=== PATIENT | female | born 1950 | race Caucasian/White ===

== ENCOUNTER 2021-02-10 12:34 | Emergency (ER) | payer MEDICARE ==
[2021-02-10] MEDS ORDERED: Sodium Chloride 0.9% 10 ML Syringe FLUSH PRN (12:44)
--- NOTE | 2021-02-10 12:53 | EDM.PDOC ---
ED HPI GENERAL MEDICAL PROBLEM - General Chief Complaint: Neuro Symptoms/Deficits Stated Complaint: TROUBLE SPEAKING [id number] Time Seen by Provider: 02/10/21 12:35 Source of Information: Reports: Patient, Family (), RN, RN Notes Reviewed History Limitations: Reports: No Limitations - History of Present Illness INITIAL COMMENTS - FREE TEXT/NARRATIVE: Pt presents to ER by POV with c/o possible stroke. Pt states that at 12-noon she had sudden onset of work finding difficulty. Pt's states they were having a conversation when the pt suddenly began speaking "jibberish". He describes both nonsensical words and slurred speech. Symptoms lasted about 5 minutes, then completely resolved. The pt states she was fully aware of what she wanted to say, but could not get the right words to come out. She knew from her 's expression and reaction that something was very wrong. She denies headache, visual changes, difficulty swallowing, or facial droop. Denies unilat eral motor weakness, numbness or tingling. Pt denies any history of CVA, head injury, HTN, or known aneurysm. Pt's father had CVA. Onset: Today, Sudden Duration: Resolved Prior to Arrival Location: Reports: Other (Speech) Quality: Reports: Other (Denies pain) Severity: Severe Improves with: Reports: None Worsens with: Reports: None Associated Symptoms: Reports: No Other Symptoms - Related Data Allergies Allergy/AdvReac Type Severity Reaction Status Date / Time No Known Allergies Allergy Verified 02/10/21 12:58 Past Medical History - Past Health History Medical/Surgical History: Denies Medical/Surgical History Social & Family History - Family History Neurological: Reports: CVA (Father) - Living Situation & Occupation Living situation: Reports: , with Spouse Occupation: Retired ED ROS GENERAL - Review of Systems Review Of Systems: Comprehensive ROS is negative, except as noted in HPI. ED EXAM, NEURO - Physical Exam Exam: See Below Exam Limited By: No Limitations General Appearance: Alert, WD/WN, No Apparent Distress Eye Exam: Bilateral Eye: EOMI, Normal Inspection, PERRL Ears: Normal External Exam, Normal Canal, Hearing Grossly Normal, Normal TMs Nose: Normal Inspection, Normal Mucosa, No Blood Throat/Mouth: Normal Inspection, Normal Lips, Normal Teeth, Normal Gums, Normal Oropharynx, Normal Voice, No Airway Compromise Head Exam: Atraumatic, Normocephalic Neck: Normal Inspection, Supple, Non-Tender, Full Range of Motion. No: Carotid Bruit Respiratory/Chest: No Respiratory Distress, Lungs Clear, Normal Breath Sounds, No Accessory Muscle Use, Chest Non-Tender Cardiovascular: Normal Peripheral Pulses, Regular Rate, Rhythm, No Edema, No Gallop, No JVD, No Murmur, No Rub GI/Abdominal: Normal Bowel Sounds, Soft, Non-Tender, No Organomegaly, No Distention, No Abnormal Bruit, No Mass Neurological: Alert, Normal Mood/Affect, Normal Dorsiflexion, CN II-XII Intact, Normal Plantar Flexion, Normal Gait, Normal Reflexes, No Motor/Sensory Deficits, Oriented x 3, Other (NIH score: 0) Back Exam: Normal Inspection, Full Range of Motion, NT Extremities: Normal Inspection, Normal Range of Motion, Non-Tender, No Pedal Edema, Normal Capillary Refill Psychiatric: Normal Affect, Normal Mood Skin Exam: Warm, Dry, Intact, Normal Color, No Rash #1 Interpretation EKG Date: 02/10/21 Time: 13:03 Rhythm: NSR Rate (Beats/Min): 63 Hollins: Normal P-Wave: Present QRS: Other (Anterior Q waves) ST-T: Normal QT: Normal Comparison: NA - No Prior EKG Course - Vital Signs Last Recorded V/S: Last Vital Signs Temp 97.9 F 02/10/21 13:07 Pulse 65 02/10/21 13:07 Resp 18 02/10/21 13:07 BP 156/99 H 02/10/21 13:07 Pulse Ox 96 02/10/21 13:07 - Orders/Labs/Meds Orders: Active Orders 24 hr Category Date Time Status Blood Glucose Check, Bedside [RC] ONETIME Care 02/10/21 12:43 Active EKG 12 Lead [EKG Documentation Completion] [] STAT Care 02/10/21 12:44 Active NIH Stroke Scale [RC] ASDIRECTED Care 02/10/21 12:43 Active Peripheral IV Care [RC] . DIRECTED Care 02/10/21 12:45 Active DRUG SCREEN URINE BIORAD [URCHEM] Stat Lab 02/10/21 12:44 Ordered UA RFX MARYURI AND CULT IF INDIC [URIN] Stat Lab 02/10/21 12:44 Ordered Sodium Chloride 0.9% [Saline Flush] Med 02/10/21 12:44 Active 10 ml FLUSH ASDIRECTED PRN Peripheral IV Insertion Adult [OM.PC] Stat Oth 02/10/21 12:44 Ordered Medication Orders Sodium Chloride (Sodium Chloride 0.9% 10 Ml Syringe) 10 ml FLUSH ASDIRECTED PRN PRN Reason: Keep Vein Open Labs: Laboratory Tests 02/10/21 02/10/21 02/10/21 Range/Units 12:45 12:54 12:54 WBC 5.7 (5.0-10.0) 10^3/uL RBC 4.82 (4.2-5.4) 10^6/uL Hgb 15.1 (12.0-16.0) g/dL Hct 45.1 (37.0-47.0) % MCV 93.6 (80-100) fL MCH 31.3 (27.0-34.0) pg MCHC 33.5 (33.0-35.0) g/dL Plt Count 159 (150-450) 10^3/uL Neut % (Auto) 50.1 (42.2-75.2) % Lymph % (Auto) 38.6 (20.5-50.1) % Bennett % (Auto) 9.9 H (2-8) % Eos % (Auto) 1.2 (1.0-3.0) % Baso % (Auto) 0.2 (0.0-1.0) % PT 10.2 (9.0-12.0) SEC INR 1.0 (0.9-1.2) APTT 24.7 (22.0-34.0) SEC Sodium (136-145) mmol/L Potassium (3.5-5.1) mmol/L Chloride (98-107) mmol/L Carbon Dioxide (21-32) mmol/L Anion Gap (7-13) mEq/L BUN (7-18) mg/dL Creatinine (0.55-1.02) mg/dL Est Cr Clr Drug Dosing mL/min Estimated GFR (MDRD) BUN/Creatinine Ratio (No establ ref range) Glucose (70-99) mg/dL POC Glucose 107 H (70-99) mg/dL Lactic Acid (0.4-2.0) mmol/L Calcium (8.5-10.1) mg/dL Total Bilirubin (0.2-1.0) mg/dL AST (15-37) U/L ALT (14-59) U/L Alkaline Phosphatase (46-116) U/L C-Reactive Protein (0.0-0.9) mg/dL Total Protein (6.4-8.2) g/dL Albumin (3.4-5.0) g/dL Globulin Albumin/Globulin Ratio Lipase (73-393) U/L Ethyl Alcohol (0) mg/dL 02/10/21 02/10/21 Range/Units 12:54 12:54 WBC (5.0-10.0) 10^3/uL RBC (4.2-5.4) 10^6/uL Hgb (12.0-16.0) g/dL Hct (37.0-47.0) % MCV (80-100) fL MCH (27.0-34.0) pg MCHC (33.0-35.0) g/dL Plt Count (150-450) 10^3/uL Neut % (Auto) (42.2-75.2) % Lymph % (Auto) (20.5-50.1) % Bennett % (Auto) (2-8) % Eos % (Auto) (1.0-3.0) % Baso % (Auto) (0.0-1.0) % PT (9.0-12.0) SEC INR (0.9-1.2) APTT (22.0-34.0) SEC Sodium 138 (136-145) mmol/L Potassium 4.6 (3.5-5.1) mmol/L Chloride 103 (98-107) mmol/L Carbon Dioxide 28 (21-32) mmol/L Anion Gap 11.6 (7-13) mEq/L BUN 9 (7-18) mg/dL Creatinine 0.99 (0.55-1.02) mg/dL Est Cr Clr Drug Dosing 50.21 mL/min Estimated GFR (MDRD) 56 BUN/Creatinine Ratio 9.1 (No establ ref range) Glucose 107 H (70-99) mg/dL POC Glucose (70-99) mg/dL Lactic Acid 1.2 (0.4-2.0) mmol/L Calcium 8.9 (8.5-10.1) mg/dL Total Bilirubin 0.5 (0.2-1.0) mg/dL AST 13 L (15-37) U/L ALT 24 (14-59) U/L Alkaline Phosphatase 93 (46-116) U/L C-Reactive Protein < 0.2 (0.0-0.9) mg/dL Total Protein 7.1 (6.4-8.2) g/dL Albumin 3.4 (3.4-5.0) g/dL Globulin 3.7 Albumin/Globulin Ratio 0.9 Lipase 52 L (73-393) U/L Ethyl Alcohol < 3 (0) mg/dL Meds: Medications Generic Name Dose Route Start Last Admin Trade Name Freq PRN Reason Stop Dose Admin Sodium Chloride 10 ml 02/10/21 12:44 Sodium Chloride 0.9% 10 Ml Syringe FLUSH ASDIRECTED PRN Keep Vein Open Discontinued Medications Generic Name Dose Route Start Last Admin Trade Name Freq PRN Reason Stop Dose Admin Aspirin 324 mg 02/10/21 13:59 Aspirin 81 Mg Tab.Chew PO 02/10/21 14:00 ONETIME ONE - Radiology Interpretation Free Text/Narrative:: CT HEAD: no acute process, chronic microvascular changes, see Rad. report. Departure - Departure Time of Disposition: 14:00 Disposition: Home, Self-Care 01 Condition: Fair Clinical Impression: TIA (transient ischemic attack) - Discharge Information *PRESCRIPTION DRUG MONITORING PROGRAM REVIEWED*: Not Applicable *COPY OF PRESCRIPTION DRUG MONITORING REPORT IN PATIENT FINESSE: Not Applicable Instructions: Transient Ischemic Attack Forms: ED Department Discharge Additional Instructions: Call [phone] to schedule an appointment for tomorrow morning (February 11) with Dr. Keene at the [facility] in [place]. Call 911 and return to the ER if any stroke like symptoms return. Sepsis Event Note (ED) - Focused Exam Vital Signs: Vital Signs Temp Pulse Resp BP Pulse Ox 02/10/21 13:07 97.9 F 65 18 156/99 H 96 - My Orders Last 24 Hours: My Active Orders 02/10/21 12:43 Blood Glucose Check, Bedside [RC] ONETIME NIH Stroke Scale [RC] ASDIRECTED 02/10/21 12:44 EKG 12 Lead [EKG Documentation Completion] [RC] STAT DRUG SCREEN URINE BIORAD [URCHEM] Stat UA RFX MARYURI AND CULT IF INDIC [URIN] Stat Sodium Chloride 0.9% [Saline Flush] 10 ml FLUSH ASDIRECTED PRN Peripheral IV Insertion Adult [OM.PC] Stat 02/10/21 12:45 Peripheral IV Care [RC] . DIRECTED - Assessment/Plan Last 24 Hours: My Active Orders 02/10/21 12:43 Blood Glucose Check, Bedside [RC] ONETIME NIH Stroke Scale [RC] ASDIRECTED 02/10/21 12:44 EKG 12 Lead [EKG Documentation Completion] [RC] STAT DRUG SCREEN URINE BIORAD [URCHEM] Stat UA RFX MARYURI AND CULT IF INDIC [URIN] Stat Sodium Chloride 0.9% [Saline Flush] 10 ml FLUSH ASDIRECTED PRN Peripheral IV Insertion Adult [OM.PC] Stat 02/10/21 12:45 Peripheral IV Care [RC] . DIRECTED
--- NOTE | 2021-02-10 13:10 | CT ---
EXAMINATION: Head wo Cont SEX: Female AGE: 71 years CLINICAL HISTORY: 71-year-old female with acute expressive aphasia and left numbness. 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 Scan technique: Volume acquisition of data emergency unenhanced CT scan of the head and brain obtained with the patient lying supine on the Siemens multislice scanner [place], [place]. All data archived in the PACS system for storage, reformatting axial/sagittal/coronal planes and study. Interpretation: 1. Asymmetric extension of the occipital horn lateral ventricle posteriorly, on the left unchanged since MRI exam 2006. 2. Atrophy (dehydration?) Over the parietal convexity bilaterally. Underlying mirror-image normal ventricular system. 3. No new supratentorial or posterior fossa mass lesion. 4. No new signs of ischemic infarct or encephalomalacia. No arachnoid cyst. Scattered microvascular ischemic disease. 5. No evidence of acute intracerebral, intraventricular or subarachnoid bleed. 6. Uniformly thick bony calvarium. Symmetric clear pneumatization of the mastoid sinuses (large retention cyst filling most of the left maxillary antrum but the paranasal sinuses otherwise clear). 7. Cerebellum and brainstem unremarkable. CONCLUSION: Atrophy. Maxillary retention cyst on the left. Chronic microvascular ischemic changes. No new evidence intracranial mass, hydrocephalus or bleed (compared MRI January 2007).
[2021-02-10 13:22] LABS: PTT,PARTIAL THROMBOPLSTIN TIME 24.7 SEC (22.0-34.0)
[2021-02-10 13:23] LABS: ANION GAP 11.6 mEq/L (7-13); CHLORIDE,CL 103 mmol/L (98-107); SODIUM,NA 138 mmol/L (136-145)
[2021-02-10] MEDS ORDERED: Aspirin 81 MG Tab.Chew PO ONE (13:59)
== END 2021-02-10 14:10 | disposition home or self-care (01) ==
LOC: DL.ED 12:34
DX: G45.9 Transient cerebral ischemic attack, unspecified (principal)
CPT/HCPCS: 36415; 70450; 80053; 80307; 82947; 83605; 83690; 85025; 85610; 85730; 86140; 93005; 99284; 99284-25

== ENCOUNTER 2022-05-04 23:46 | Emergency (ER) | payer MEDICARE | END 2022-05-05 01:10 | disposition home or self-care (01) | LOC: DL.ED 23:46 | DX: S52.501A Unspecified fracture of the lower end of right radius, initial encounter for closed fracture (principal); S52.601A Unspecified fracture of lower end of right ulna, initial encounter for closed fracture; W10.8XXA Fall (on) (from) other stairs and steps, initial encounter | CPT/HCPCS: 29125; 73110-RT; 99282; 99283-25 ==

== ENCOUNTER 2024-06-02 00:03 | Emergency (ER) | payer MEDICARE, OTHER, SELFPAY ==
[2024-06-02] MEDS: Ondansetron 4 MG Tab.DIS PO ONE (00:50)
[2024-06-02] MEDS: Dexamethasone 4 MG/ML SDV PO ONE (00:50)
[2024-06-02] MEDS: Acetaminophen/HYDROcodone 325-10 MG Tab PO ONE (00:51)
[2024-06-02] MEDS: oxyCODONE 5 MG Tab PO ONE (01:49)
[2024-06-02] MEDS: Take Home: Acetaminophen/oxyCODONE 325-5 MG, 5 Tab Pack PO ONE (02:09)
== END 2024-06-02 02:12 | disposition home or self-care (01) ==
LOC: DL.ED 00:03
DX: M54.50 Low back pain, unspecified (principal); E03.9 Hypothyroidism, unspecified; Z79.890 Hormone replacement therapy
CPT/HCPCS: 72070; 72100; 99283; A9270-GY; J1100

== ENCOUNTER 2024-08-29 09:20 | Emergency (ER) | payer MEDICARE, MEDICAID ==
[2024-08-29] MEDS: Iopamidol 755 Mg/ML 100 ML Bottle IV ONE (09:29)
[2024-08-29 09:42] LABS: HEMATOCRIT 28.5 % (37.0-47.0); HEMOGLOBIN 9.1 g/dL (12.0-16.0); MEAN CORPUSCULAR HEMOGLOBIN 34.1 pg (27.0-34.0); MEAN CORPUSCULAR HGB CONC 31.9 g/dL (33.0-35.0); MEAN CORPUSCULAR VOLUME 106.7 fL (80-100); PLATELET COUNT,PLT 191 10^3/uL (150-450); RED BLOOD CELL COUNT 2.67 10^6/uL (4.2-5.4); WHITE BLOOD CELL COUNT,WBC 36.8 10^3/uL (5.0-10.0)
[2024-08-29 09:48] LABS: LYMPHOCYTES PERCENT AUTO 2.4 % (20.5-50.1); MONOCYTES PERCENT AUTO 1.9 % (2-8); NEUTROPHILS PERCENT AUTO 95.7 % (42.2-75.2)
[2024-08-29 10:06] LABS: BAND PERCENT MAN 1 %; LYMPHOCYTES PERCENT MAN 2 % (20-50); MONOCYTES PERCENT MAN 3 % (2-8); SEG NEUTROPHILS PERCENT MAN 94 % (42-75)
[2024-08-29 10:08] LABS: LACTIC ACID 1.3 mmol/L (0.4-2.0)
[2024-08-29] MEDS: Aspirin 81 MG Tab.Chew PO ONE (10:15)
[2024-08-29 10:16] LABS: ALANINE AMINOTRANSFERASE,ALT 23 U/L (14-59); ALBUMIN 2.6 g/dL (3.4-5.0); ALKALINE PHOSPHATASE 87 U/L (46-116); ANION GAP 11.2 mEq/L (7-13); ASPARTATE AMNIOTRANSFERASE,AST 14 U/L (15-37); BILIRUBIN TOTAL 0.2 mg/dL (0.2-1.0); BLOOD UREA NITROGEN,BUN 20 mg/dL (7-18); BUN/CREATININE RATIO 22.2 (No establ ref range); CARBON DIOXIDE,CO2 28 mmol/L (21-32); CHLORIDE,CL 107 mmol/L (98-107); GLUCOSE RANDOM 90 mg/dL (70-99); POTASSIUM,K 3.2 mmol/L (3.5-5.1); PROTEIN TOTAL,TP 5.7 g/dL (6.4-8.2); SODIUM,NA 143 mmol/L (136-145); TSH ULTRASENSITIVE 3.54 uIU/mL (0.36-3.74)
[2024-08-29 10:17] LABS: A/G RATIO 0.84; ESTIMATED GFR 68 mL/min (>=60); INR 0.9 (0.9-1.2); PROTHROMBIN TIME 9.6 SEC (9.0-12.0); PTT,PARTIAL THROMBOPLSTIN TIME 19.9 SEC (22.0-34.0)
[2024-08-29] MEDS: Sodium Chloride 0.9% 10 ML Syringe FLUSH PRN (10:30)
[2024-08-29] MEDS: Potassium Chloride 20 MEQ in Premix Bag 1 BAG IV ONE (11:06)
[2024-08-29 11:08] LABS: APPEARANCE,URINE SLIGHTLY CLOUDY (CLEAR); BILIRUBIN,URINE NEGATIVE (NEGATIVE); COLOR,URINE YELLOW (YELLOW); GLUCOSE,URINE NEGATIVE (NEGATIVE); KETONES,URINE NEGATIVE (NEGATIVE); LEUKOCYTE ESTERASE,URINE TRACE (NEGATIVE); NITRITE,URINE NEGATIVE (NEGATIVE); OCCULT BLOOD,URINE TRACE-LYSED (NEGATIVE); PROTEIN,URINE NEGATIVE (NEGATIVE); UROBILINOGEN,URINE 0.2 mg/dL (0.2-1.0)
[2024-08-29 11:19] LABS: WBC,URINE 20-30 /HPF (0-5/HPF)
[2024-08-29 11:20] LABS: BACTERIA,URINE FEW /HPF (0-FEW/HPF); EPITHELIAL CELLS,URINE MODERATE /HPF (NOT SEEN); MUCUS,URINE FEW /LPF (NOT SEEN)
[2024-08-29] MEDS: Sodium Chloride 0.9% 500 ML IV SCH (11:28)
[2024-08-29] MEDS: cefTRIAXone 1 GM Vial IVPUSH ONE (12:07)
== END 2024-08-29 12:20 ==
LOC: DL.ED 09:20
DX: I69.320 Aphasia following cerebral infarction (principal); I69.322 Dysarthria following cerebral infarction; G52.9 Cranial nerve disorder, unspecified; E03.9 Hypothyroidism, unspecified; Z87.891 Personal history of nicotine dependence; Z79.890 Hormone replacement therapy
CPT/HCPCS: 36415; 70450; 70496; 70498; 71045; 80053; 81001; 82947; 83605; 83735; 84443; 84484; 85025; 85610; 85730; 87040; 87086; 93010; 96365; 96375; 99285; A9270; J0696; J3480; J7040; Q9967